=== PATIENT | male | born 1960 | race Caucasian/White ===

== ENCOUNTER → 2017-01-18 | Outpatient (CLI) | payer BC ==
[~2017-01-18] MED LIST: AMLO-114 PO; CLB200 PO; GLC/500 PO; HYDR-5688 PO; HYDR25TA4 PO; METO1TAB69 PO; OXYSR10 PO; POTA10CA28 PO; SERT-234 PO; TELM40TA11 PO
[2017-01-18 19:01] LABS: ALB/GLOB RATIO 0.7 (0.9-2); ALKALINE PHOSPHATASE 96 U/L (45-117); ALT/SGPT 26 U/L (12-78); AST/SGOT 22 U/L (15-37); BLOOD UREA NITROGEN 11 mg/dl (7-18); BUN/CREATININE RATIO 13.1 (10-20); CALCIUM 8.7 mg/dl (8.5-10.1); CARBON DIOXIDE 30 mmol/L (21-32); CHLORIDE 99 mmol/L (98-107); CREATININE 0.85 mg/dl (0.60-1.40); GLUCOSE 118 mg/dl (70-99); POTASSIUM 3.1 mmol/L (3.5-5.1); SODIUM 139 mmol/L (136-145)
[2017-01-18 19:46] LABS: RATIO 6.9 mcg/mg (0-30.0)
[2017-01-19 05:56] LABS: ESTIMATED AVERAGE GLUCOSE 160 mg/dl; HA1C FLAG Normal (Normal)
== END | disposition home or self-care (01) ==
LOC: C.LABMFLN 09:18
PROVIDERS: ATTEND Family Medicine
DX: I10 Essential (primary) hypertension (principal); E66.01 Morbid (severe) obesity due to excess calories; E11.9 Type 2 diabetes mellitus without complications

== ENCOUNTER → 2017-03-10 | Outpatient (CLI) | payer BC ==
[~2017-03-10] MED LIST changes: +ACET-24 PO; +METO100T44 PO; -METO1TAB69 PO; +ONDA8TAB6 PO; +RXC5 PO; +XRL10 PO
[2017-03-10 13:16] LABS: BLOOD UREA NITROGEN 8 mg/dl (7-18); BUN/CREATININE RATIO 10.5 (10-20); CALCIUM 8.7 mg/dl (8.5-10.1); CARBON DIOXIDE 32 mmol/L (21-32); CHLORIDE 105 mmol/L (98-107); CREATININE 0.76 mg/dl (0.60-1.40); GLUCOSE 119 mg/dl (70-99); SODIUM 141 mmol/L (136-145)
== END | disposition home or self-care (01) ==
LOC: C.LABMFLN 11:25
PROVIDERS: ATTEND Physician Assistant
DX: E87.6 Hypokalemia (principal)

== ENCOUNTER 2017-08-30 05:13 | Inpatient (IN) | payer BC ==
[2017-07-28 14:31] VITALS: BMI 50.0
--- NOTE | 2017-07-28 15:00 | PAT Medication Instructions ---
Service Date Jul 28, 2017. Current Home Medication List Amlodipine (Norvasc), 10 MG PO QAM Hydrochlorothiazide (Hctz), 25 MG PO QAM Metformin Hcl (Glucophage), 500 MG PO QAM Metoprolol Succ (Toprol Xl) (Toprol-Xl ), 100 MG PO QAM Potassium Chloride (Micro-K Ext Rel), 10 MEQ PO QAM Sertraline (Zoloft), 100 MG PO QAM Telmisartan (Micardis), 40 MG PO QAM Medication Instructions For Your Scheduled Surgery - Hold the following medications 48 hours prior to surgery: Metformin Hcl (Glucophage), 500 MG PO QAM - Hold the following medications the morning of surgery: Telmisartan (Micardis), 40 MG PO QAM Potassium Chloride (Micro-K Ext Rel), 10 MEQ PO QAM Hydrochlorothiazide (Hctz), 25 MG PO QAM - Take the following medications the morning of surgery with a sip of water OTHERWISE NOTHING TO EAT OR DRINK AFTER MIDNIGHT: Sertraline (Zoloft), 100 MG PO QAM Amlodipine (Norvasc), 10 MG PO QAM Metoprolol Succ (Toprol Xl) (Toprol-Xl ), 100 MG PO QAM No chewing tobacco AM of surgery* If you have any questions please call us at [phone] or [phone] or [phone]
--- NOTE | 2017-07-28 15:41 | DIAGNOSTIC IMAGING REPORT ---
CHEST PREADMISSION(PA/LAT) HISTORY: 57 years-old Male preadmission exam. No acute chest complaints COMPARISON: Chest radiographs 05/01/2015 TECHNIQUE: Frontal and lateral views of the chest FINDINGS: Moderate enlargement of the cardiac silhouette is again seen. There is no pneumothorax or large pleural effusion. There is unchanged mild blunting of the right costophrenic angle with medial right lung base opacity suggesting atelectasis or prominent epicardial fat pad. No lobar airspace consolidation. There is mild convex left curvature of the lower thoracic spine. Bones are grossly intact. IMPRESSION: Cardiomegaly without acute process or focal airspace consolidation. The above report was generated using voice recognition software. It may contain grammatical, syntax or spelling errors. Electronically signed by: Edmund Medina M.D. 07/28/2017 3:40 PM Dictated Date/Time: 07/28/2017 3:38 PM
[2017-07-28 15:53] LABS: BASO % 0.6 %; BASO ABS # 0.04 K/uL (0-0.2); COMPLETE YES; EOS % 2.9 %; HEMATOCRIT 43.7 % (42-52); IG% 0.4 %; LYMPH % 27.6 %; LYMPH ABS # 1.97 K/uL (1.2-3.4); MEAN CELL VOLUME 89.9 fL (80-100); MEAN CORPUSCULAR HEMOGLOBIN 32.1 pg (25-34); MEAN CORPUSCULAR HGB CONC 35.7 g/dl (32-36); MEAN PLATELET VOLUME 9.6 fL (7.4-10.4); MONO % 11.3 %; NEUT % 57.2 %; PLATELET COUNT 224 K/uL (130-400); RED BLOOD COUNT 4.86 M/uL (4.7-6.1); URINE APPEARANCE CLEAR (CLEAR); URINE BILIRUBIN NEG (NEG); URINE COLOR DK YELLOW; URINE NITRITE NEG (NEG); URINE PH 6.5 (4.5-7.5); URINE SPECIFIC GRAVITY 1.022 (1.000-1.030); UROBILINOGEN NEG (NEG); WHITE BLOOD COUNT 7.14 K/uL (4.8-10.8); ZZUR CULT IF INDIC CLEAN CATCH NO
[2017-07-28 15:54] LABS: MANUAL MICROSCOPIC REQUIRED? NO; REVIEW REQ? NO
[2017-07-28 16:01] LABS: INR 1.1 (0.9-1.1); PARTIAL THROMBOPLASTIN RATIO 1.1
[2017-07-28 16:02] LABS: BUN/CREATININE RATIO 12.9 (10-20); CALCIUM 8.9 mg/dl (8.5-10.1); CREATININE 0.87 mg/dl (0.60-1.40); POTASSIUM 3.7 mmol/L (3.5-5.1)
[2017-07-29 06:21] LABS: ESTIMATED AVERAGE GLUCOSE 157 mg/dl; HA1C FLAG Normal (Normal)
--- NOTE | 2017-08-29 17:25 | HISTORY & PHYSICAL EXAMINATION ---
DATE OF ADMISSION: 08/30/2017 CHIEF COMPLAINT: Chronic left knee pain. HISTORY OF PRESENT ILLNESS: This is a 57-year-old male patient of Dr. Rdz, complaining of chronic left knee pain, longstanding, now progressively getting worse. The patient has been diagnosed with end-stage osteoarthritis per clinical and radiographic exams. The patient has failed conservative treatment including Tylenol and anti-inflammatories. The patient has increased pain with weightbearing activities and his pain does interfere with his activities of daily living. PAST MEDICAL HISTORY: Hypertension. SOCIAL HISTORY: Nonsmoker and nondrinker. FAMILY HISTORY: Noncontributory. PAST SURGICAL HISTORY: Hernia repair and knee surgery. MEDICATIONS: Amlodipine 10 mg daily, metoprolol 100 mg daily, sertraline 100 mg daily, metformin 500 mg b.i.d., hydrochlorothiazide 25 mg daily, telmisartan 40 mg b.i.d., and potassium chloride 10 mg b.i.d. ALLERGIES: No known drug allergies. PHYSICAL EXAMINATION: GENERAL: Well-developed and well-nourished 57-year-old male in no acute distress. He is alert and oriented x3 and pleasant. HEENT: Normocephalic and atraumatic. Extraocular movements are intact. Pupils are equal and reactive to light. HEART: Regular rate and rhythm. No murmurs appreciated. LUNGS: Clear. ABDOMEN: Soft and nontender. Bowel sounds present. EXTREMITIES: Left knee reveals a limited range of motion of 0-95 degrees of ____. He has mild effusion with crepitation with passive range of motion. He has medial joint line tenderness. NEUROLOGIC: Neurovascularly, he is intact in his left lower extremity. DIAGNOSES: Left knee end-stage osteoarthritis and hypertension. PLAN: The patient was advised of his diagnoses. Indications, risks, benefits, and postop course have all been reviewed. The patient wishes to proceed with a left total knee arthroplasty. Necessary consent forms, preoperative testing and clearances will be obtained.
[~2017-08-30] VITALS: Ht 182.9 cm; Wt 166.0 kg
[2017-08-30] VITALS (9 sets, daily range): BP systolic 98–149; BP diastolic 65–91; PULSE 55–71; TEMP 36.3–36.5; O2SAT 90–98; Ht 182.9 cm; Wt 166.0 kg
[~2017-08-30 05:13] MED LIST changes: -ACET-24 PO; -CLB200 PO; -HYDR-5688 PO; -METO100T44 PO; +METO1TAB69 PO; -ONDA8TAB6 PO; -OXYSR10 PO; -RXC5 PO; -XRL10 PO
[2017-08-30] MEDS ORDERED: FAMOTIDINE 20 MG TAB PO SCH (06:00)
[2017-08-30] MEDS ORDERED: LACTATED RINGER'S 1000ML 500 ML IV ONE (06:00)
[2017-08-30] MEDS ORDERED: METOCLOPRAMIDE HCL 10 MG TAB PO SCH (06:00)
[2017-08-30] MEDS ORDERED: CEFAZOLIN 3000 MG/65 ML D5W 65 ML IV SCH (06:00)
[2017-08-30] MEDS ORDERED: ROPIVACAINE 5MG/ML 30 ML 150 MG, BUPIVACAINE/EPINEPHR 0.5% MPF 30 ML, KETOROLAC TROMETH... INFIL SCH ×6 (06:00)
[2017-08-30] MEDS ORDERED: GABAPENTIN 300 MG CAP PO SCH (06:00)
[2017-08-30] MEDS ORDERED: LACTATED RINGER'S 1000ML IV SCH (06:00)
[2017-08-30] MEDS ORDERED: LACTATED RINGER'S 1000ML 1,000 ML IV SCH (06:00)
[2017-08-30] MEDS ORDERED: ACETAMINOPHEN 500 MG TAB PO SCH (06:00)
[2017-08-30] MEDS ORDERED: CeleBREX 200 MG CAP PO SCH (06:00)
[2017-08-30] MEDS ORDERED: BUPIVACAINE 0.25% 30 ML VIAL ONE (06:21)
[2017-08-30] MEDS ORDERED: BUPIVACAINE 0.5 % 5 MG/1 ML PF 10ML VIAL ONE (06:21)
[2017-08-30] MEDS: TRANEXAMIC ACID INJ 1,000 MG in SODIUM CHLORIDE 0.9% 100ML 100 ML IV SCH ×2 (06:30→06:34)
[2017-08-30] MEDS ORDERED: POVIDONE-IODINE OP SOLN 30 ML BTL ONE (07:04)
[2017-08-30] MEDS ORDERED: ORTHO JOINT ANESTHETIC ONE (07:04)
[2017-08-30] MEDS ORDERED: BACITRACIN 50000 UNIT VIAL ONE (07:05)
[2017-08-30] MEDS ORDERED: MIDAZOLAM HCL 1 MG/ML 2ML VIAL ONE ×2 (07:11→07:17)
[2017-08-30] MEDS ORDERED: ONDANSETRON INJ 2 MG/ML 2 ML VIAL IV PRN ×2 (07:15→09:45)
[2017-08-30] MEDS ORDERED: EpHEDrine SULFATE INJ 50 MG/ML AMP IV PRN (07:15)
[2017-08-30] MEDS ORDERED: FENTANYL CITRATE INJ 50 MCG/1 ML 2 ML VIAL IV PRN (07:15)
[2017-08-30] MEDS ORDERED: ATROPINE SULFATE 0.1 MG/ML 5ML SYR IV PRN (07:15)
--- NOTE | 2017-08-30 07:26 | History & Physical Bridge Note ---
H&P Re-Evaluation Bridge Note: I have examined the patient, reviewed the History & Physical and in the interval since the performance of the History & Physical I have noted the following changes of clinical significance: No changes noted
[2017-08-30] MEDS ORDERED: BISACODYL 10 MG SUPP PR PRN (09:45)
[2017-08-30] MEDS ORDERED: MAGNESIUM HYDROXIDE SUSP 30 ML UDC PO PRN (09:45)
[2017-08-30] MEDS ORDERED: ZOLPIDEM TARTRATE 5 MG TAB PO PRN (09:45)
[2017-08-30] MEDS ORDERED: ALUMINUM/MAGNESIUM/SIMETH (MAALOX MAX) 30 ML UDC PO PRN (09:45)
[2017-08-30] MEDS ORDERED: SOD PHOSPHATE/SOD BIPHOSPHATE ENEMA 132 ML BTL PR PRN (09:45)
--- NOTE | 2017-08-30 09:51 | [facility] Post Operative Brief Note ---
Immediate Operative Summary Operative Date Aug 30, 2017. Pre-Operative Diagnosis Left Knee Degenerative Joint Disease Post-Operative Diagnosis Left Knee Degenerative Joint Disease Procedure(s) Performed Left Total Knee Arthroplasty Surgeon Dr. Preet Rdz Prepress Manager Surgeon(s) Pablito Davis PA-C Estimated Blood Loss 5ml Findings end stage djd oa grade 4 patellofemoral and medial compartment varus knee Specimens Permanent: A. Left Knee Bone and Tissue Drains 2 hemovac Anesthesia spinal adductor bvlock and orthomix Complication(s) None Disposition Recovery Room / PACU
--- NOTE | 2017-08-30 10:24 | DIAGNOSTIC IMAGING REPORT ---
LEFT KNEE 2 VIEWS History: Left total knee arthroplasty. Degenerative arthritis. Postop. FINDINGS: The patient is status post a left total knee arthroplasty. The hardware is intact. No fracture or dislocation. Skin elle and surgical drains are in place. IMPRESSION: Left total knee arthroplasty. No evidence for hardware complication. Electronically signed by: Laz Ansari M.D. 08/30/2017 10:22 AM Dictated Date/Time: 08/30/2017 10:22 AM
--- NOTE | 2017-08-30 10:24 | OPERATIVE REPORT ---
DATE OF OPERATION: 08/30/2017 INDICATION FOR PROCEDURE: The patient is a 57-year-old male who presents with chronic left knee pain and osteoarthritis in her knee, failed conservative management. He is obese with BMI of 49.8. His radiographs demonstrate he is [id number] in the medial compartment with a varus knee and has patellofemoral osteoarthritis. PREOPERATIVE DIAGNOSIS: End-stage osteoarthritis, left knee. POSTOPERATIVE DIAGNOSIS: Same. PROCEDURE: Left total knee arthroplasty. SURGEON: Dr. Rdz. PET COUNSELOR: Pablito Davis PA-C. ANESTHESIA: Spinal adductor nerve block and Orthomix. OPERATIVE PROCEDURE: The patient was taken to the operating room, anesthetized under spinal anesthetic and an adductor nerve block. Placed supine on the operating room table. Pneumatic tourniquet was placed about his obese upper thigh. His left lower extremity was prepped and draped with ChloraPrep usual sterile fashion. Exam demonstrated he had good range of motion, had obese leg, but mostly up in his thigh. It was just a large man and a good part of his BMI was due to just being very large. His left leg was elevated, exsanguinated with Esmarch bandage. Pneumatic tourniquet was raised to 350 mmHg because of his obesity. Anterior incision was made across the left knee. Skin incised sharply. Subcutaneous flaps were elevated. Incision was made through medial retinaculum and extended up in the mid third of the quadriceps tendon and extended down to the medial tibial tubercle. Intraarticular findings demonstrated he had [id number] in the medial compartment with some minor bone loss medial femoral condyle. He had [id number] in the patellofemoral joint laterally. He was a large individual with large bones. He had tricompartmental osteophytes. I used the [employer] Journey 2.0, total knee arthroplasty system and we used conventional instrumentation. The knee was exposed by excising the infrapatellar fat pad, excising the menisci and cruciate ligaments. The osteophytes were excised and we did do a partial synovectomy of suprapatellar pouch extending into some of the upper gutters due to marked inflammatory synovitis. The lateral synovial bands were released. The femur was exposed. Intramedullary drill hole was made into the femur. The guide sam was placed. Distal femoral cutting guide was adjusted to make a 5 degree valgus cut. We made the standard distal femoral cut with the oscillating saw. Then measured the femur for a size 8 femoral component. Drill holes were made in 3 degrees of external rotation to match the epicondylar axis. The 5-1 cutting block was placed, anterior, posterior and chamfer cuts made. Then the knee was extended. A subperiosteal peel lateral release was performed around the patella. The patella width was measured and width was reproduced using a freehand cut technique and a 41 mm dome patella component. The excess lateral facet was beveled off to prevent any impingement. Drill holes were made for the component. The tibia was then subluxed and the external tibial cutting guide was adjusted to make a perpendicular cuts long axis of the tibia cutting below the most efficient medial side. After the tibial cut was made we used the lamina sql bi developer to adjust ligamentous balance in extension and flexion and the ligaments were balanced. At this time, the tibia was exposed and the tibial trial size 7 was externally rotated in line with the tibial tubercle, pinned in position. The punch for the stem was used. Then the 8 femoral trial was inserted, centered and the notch cutting devices were used, the collet was placed and a 13 trial insert gave balanced ligaments through full range of motion and the 41 patella tracked centrally. The trials were removed. The anesthetic cocktail was injected per protocol and then the knee was copiously irrigated with antibiotic solution with bacitracin. Bone surfaces were dried. Then, the final components were cemented with Simplex G cement. Final components were a 6 Oxinium posterior stabilized left [employer]hew Journey 2.0 femur, the 7 tibial baseplate, 13 mm high flex posterior stabilized poly insert and the 41 patella. While cement cured, the Betadine soak was used. Then after irrigating this out again 2 drains were brought out laterally and then the quadriceps tendon and medial retinaculum were closed with interrupted [id number] #1 Vicryl sutures. The knee was taken through full range of motion and repair was secure. Then the subcutaneous tissue closed with 2-0 Vicryl sutures, skin was closed with elle. Silverlon dressing was placed. The patient tolerated the procedure well. SRAVANTHI Alfaro was my assistant baseball coach and functioned as assistant baseball coach for the entire procedure. He assisted in patient positioning, prepping, draping, leg positioning, soft tissue retraction, instrument management during the procedure and he did assist in the subcutaneous and skin closure and will participate in postoperative care of the patient. I attest to the content of the Intraoperative Record and any orders documented therein. Any exception s are noted below.
--- NOTE | 2017-08-30 10:25 | Anesthesiology Progress Note ---
Anesthesia Post Op Note Date & Time Aug 30, 2017 at 10:25 Vital Signs Pain Intensity: 0 Vital Signs Past 12 Hours Date Time Temp Pulse Resp B/P (MAP) Pulse Ox O2 Delivery O2 Flow Rate FiO2 08/30/17 10:20 36.8 62 14 110/77 99 Oxymask 3 08/30/17 10:10 66 14 123/73 99 Oxymask 3 08/30/17 10:00 62 14 126/76 99 Mask 10 08/30/17 09:53 66 14 129/89 99 Mask 10 08/30/17 09:43 37.2 62 18 136/83 100 Mask 10 08/30/17 05:46 36.5 71 18 142/91 95 Room Air Notes Mental Status: alert / awake / arousable, participated in evaluation Pt Amnestic to Procedure: Yes Nausea / Vomiting: adequately controlled Pain: adequately controlled Airway Patency, RR, SpO2: stable & adequate BP & HR: stable & adequate Hydration State: stable & adequate Neuraxial Anesthesia: was administered, sensory block is resolving Anesthetic Complications: no major complications apparent
[2017-08-30] MEDS: SODIUM CHLORIDE 0.9% 1000ML 1,000 ML IV SCH ×2 (11:04→19:43)
[2017-08-30] MEDS: INSULIN ASPART 100 UNITS/ML 3 ML PEN SC SCH ×3 (13:09→21:50)
[2017-08-30] MEDS ORDERED: HydrALAZINE HCL 20 MG/ML VIAL IV. PRN (13:45)
[2017-08-30] MEDS ORDERED: GLUCOSE 10 TABS/TUBE PO PRN (13:45)
[2017-08-30] MEDS ORDERED: GLUCAGON FOR INJ 1 MG VIAL SQ PRN (13:45)
[2017-08-30] MEDS ORDERED: DEXTROSE 50% 50 ML SYR IV PRN (13:45)
[2017-08-30] MEDS ORDERED: GLUCOSE 40% GEL 15 GM TUBE PO PRN (13:45)
--- NOTE | 2017-08-30 13:47 | Medical Consult ---
Consultation Date of Consultation: Aug 30, 2017. Attending Physician: Preet Rdz M.D. Reason for Consultation: Medical management History of Present Illness This is a 57 y/o male with a history of HTN, HLD, DM II, and anxiety who presents s/p L TKA with Dr. Rdz on 08/30 for medical management. The patient complains of fatigue and some soreness in his left knee but is otherwise feeling well. He is tolerating a PO diet without difficulty. He has not yet urinated, passed gas or had a bowel movement postoperatively. The patient denies fevers, chills, sweats, chest pain, palpitations, claudication, cough, wheezing, shortness of breath, nausea, vomiting, abdominal pain, dysuria , hematuria, urinary retention, paralysis, weakness, numbness and tingling. Past Medical/Surgical History HTN HLD DM II Anxiety Family History Hypertension Lung cancer Social History Smoking Status: Never Smoker Smokeless Tobacco Use: Yes Alcohol Use: socially Drug Use: none Marital Status: Housing Status: lives with significant other Occupation Status: employed Allergies Coded Allergies: Morphine (Verified Allergy, Unknown, G I YURI, 08/30/17) Current Inpatient Medications Current Inpatient Medications Medications (Trade) Dose Ordered Sig/Jayro Route Start Time Stop Time Status Last Admin Dose Admin Lactated Ringer's 1,000 ml @ 60 mls/hr [id number] IV 08/30/17 06:00 08/30/17 22:39 08/30/17 06:02 60 MLS/HR Cefazolin Sodium 65 ml @ 100 mls/hr PREOP IV 08/30/17 06:00 08/30/17 18:00 08/30/17 07:35 100 MLS/HR Acetaminophen (Tylenol Tab) 1,000 mg PREOP PO 08/30/17 06:00 08/30/17 18:00 08/30/17 06:18 1,000 MG Celecoxib (CeleBREX CAP) 200 mg PREOP PO 08/30/17 06:00 08/30/17 18:00 08/30/17 06:19 200 MG Famotidine (Pepcid Tab) 20 mg PREOP PO 08/30/17 06:00 08/30/17 18:00 08/30/17 06:19 20 MG Gabapentin (Neurontin Cap) 600 mg PREOP PO 08/30/17 06:00 08/30/17 18:00 08/30/17 06:18 600 MG Metoclopramide HCl (Reglan Tab) 10 mg PREOP PO 08/30/17 06:00 08/30/17 18:00 08/30/17 06:17 10 MG Tranexamic Acid 1000 mg/Sodium Chloride 110 ml @ 660 mls/hr TODAY@06,0630 IV 08/30/17 06:00 08/30/17 18:00 08/30/17 06:30 660 MLS/HR Lactated Ringer's 1,000 ml @ 15 mls/hr Q24H IV 08/30/17 06:00 08/31/17 05:59 Amlodipine Besylate (Norvasc Tab) 10 mg QAM PO 08/31/17 09:00 09/30/17 08:59 Hydrochlorothiazide (Hydrochlorothiazide Tab) 25 mg QAM PO 08/31/17 09:00 09/30/17 08:59 Metoprolol Succinate (Toprol Xl Tab) 100 mg QAM PO 08/31/17 09:00 09/30/17 08:59 Potassium Chloride (Klor-Con M10) 10 meq QAM PO 08/31/17 09:00 09/30/17 08:59 Sertraline HCl (Zoloft Tab) 100 mg QAM PO 08/31/17 09:00 09/30/17 08:59 Telmisartan (Micardis Tab) 40 mg QAM PO 08/31/17 09:00 09/30/17 08:59 Sodium Chloride 1,000 ml @ 100 mls/hr Q10H IV 08/30/17 09:40 08/31/17 09:39 08/30/17 11:04 100 MLS/HR Cefazolin Sodium 2000 mg/Dextrose 60 ml @ 100 mls/hr Q8H IV 08/30/17 16:00 08/31/17 00:35 Oxycodone HCl (Roxicodone Immediate Rel Tab) 1 TABLET FOR PAIN RATING... Q4H PRN PO 08/30/17 09:45 09/13/17 09:44 Oxycodone HCl (Oxycontin Tab) 10 mg Q12 PO 08/30/17 21:00 09/13/17 20:59 Acetaminophen (Tylenol Tab) 1,000 mg Q8H PO 08/30/17 14:00 09/29/17 13:59 Magnesium Hydroxide (Milk Of Magnesia Susp) 30 ml Q6H PRN PO 08/30/17 09:45 09/29/17 09:44 Bisacodyl (Dulcolax Supp) 10 mg DAILY PRN W[place] 08/30/17 09:45 09/29/17 09:44 Sodium Biphosphate/ Sodium Phosphate (Fleet Enema) 132 ml DAILY PRN W[place] 08/30/17 09:45 09/29/17 09:44 Docusate Sodium (coLACE CAP) 100 mg BID PO 08/30/17 21:00 09/29/17 20:59 Diphenhydramine HCl (Benadryl Cap) 25 mg Q8H PRN PO 08/30/17 09:45 09/29/17 09:44 Al Hydrox/Mg Hydrox/Simethicone (Maalox Max Susp) 15 ml Q4H PRN PO 08/30/17 09:45 09/29/17 09:44 Zolpidem Tartrate (Ambien Tab) 5 mg HSZ PRN PO 08/30/17 09:45 09/29/17 09:44 Multivitamins (Multivitamin Tab) 1 tab QAM PO 08/31/17 09:00 09/30/17 08:59 Ondansetron HCl (Zofran Inj) 4 mg Q6H PRN IV 08/30/17 09:45 09/29/17 09:44 Pantoprazole Sodium (Protonix Tab) 40 mg QAM PO 08/31/17 09:00 09/30/17 08:59 Rivaroxaban (Xarelto Tab) 10 mg Q24H PO 08/31/17 09:00 09/12/17 08:59 Hydromorphone HCl (Dilaudid Inj) 0.5 mg Q3H PRN IV 08/30/17 09:45 09/13/17 09:44 Insulin Aspart (novoLOG ASPART) SLIDING SCALE G... ACHS SC 08/30/17 11:00 09/29/17 10:59 08/30/17 13:09 2 UNITS Review of Systems See HPI for pertinent positives and negatives. All other systems reviewed and negative. Physical Exam Date Time Temp Pulse Resp B/P (MAP) Pulse Ox O2 Delivery O2 Flow Rate FiO2 08/30/17 13:40 58 16 98/65 (76) 96 Nasal Cannula 2.0 08/30/17 12:25 36.3 60 19 117/69 (85) 94 Nasal Cannula 2.0 08/30/17 11:28 36.3 60 16 127/73 (91) 98 Mask 2.0 08/30/17 10:54 36.4 60 16 132/78 (96) 96 Mask 2.0 08/30/17 10:33 92 Oxymask 2.0 08/30/17 10:33 36.4 62 16 131/81 (98) 92 Oxymask 2.0 08/30/17 10:20 36.8 62 14 110/77 99 Oxymask 3 08/30/17 10:10 66 14 123/73 99 Oxymask 3 08/30/17 10:00 62 14 126/76 99 Mask 10 08/30/17 09:53 66 14 129/89 99 Mask 10 08/30/17 09:43 37.2 62 18 136/83 100 Mask 10 08/30/17 05:46 36.5 71 18 142/91 95 Room Air General appearance: +Morbidly obese. Lethargic. Well-developed, well- nourished, no apparent distress Head: Normocephalic, atraumatic Eyes: Normal inspection, PERRL, EOMI ENT: Normal ENT inspection, hearing grossly normal, pharynx normal Neck: Supple, no JVD, trachea midline Respiratory/Chest: Lungs clear to auscultation, normal breath sounds, no respiratory distress Cardiovascular: Regular rate & rhythm, no gallop, no murmur Abdomen/GI: Normal bowel sounds, non-tender, soft Extremities/Musculoskeletal: +LLE wrapped in viviana bandage. Normal inspection, no calf tenderness, no pedal edema Neurological/Psych: Alert, normal mood/affect, oriented x 3 Skin: Normal color, warm/dry, no rash Laboratory Results Last 24 Hours Test 08/30/17 06:17 08/30/17 09:57 08/30/17 11:46 Bedside Glucose 114 mg/dl 117 mg/dl 117 mg/dl Assessment & Plan 57 y/o male with a history of HTN, HLD, DM II, and anxiety who presents s/p L TKA with Dr. Rdz on 08/30 for medical management. S/p L TKA -Pain management, DVT prophylaxis, and PT/OT as per primary team -AVSS, lethargic following anesthesia but answering questions appropriately -CBC and PRP pending HTN--stable -Hold HCTZ and telmisartan for now while on IVF and until renal function checked /stable -Continue Norvasc 10 mg PO qd and Toprol XL 100 mg PO qd -Cover with hydralazine 10 mg IV q6h prn SBP >180 DM II--last HgbA1c checked 07/28/17 was 7.1 -Hold metformin -Insulin sliding scale -Check BSGs q ac and qhs Anxiety -Continue Zoloft 100 mg PO qd Code Status -Level I, FULL RESUSCITATION STATUS Thank you for this consultation. We will continue to follow. Resident Physician Supervision Note: Pt seen/evaluated. I discussed the case with the PA and agree with the findings and plan as documented in the note. Any exceptions or clarifications are listed here: 57 y/o M with a history of HTN, HPL, DM II - post L TKA. Recovering well post- op - denies N/V, SOB or lighthead - pain is controlled OE Obese, middle-aged male - no distress AAO x 3 S1,2 R CTAB NT, ND no edema - pulses + in LEs P: Place on SS Resume HTN meds AM following BMP Does not normally take a Statin - presumably does not tolerate but should be addressed with his MD as outpt Med will follow pending DC Documented By: Daniel Paul
[2017-08-30 14:13] LABS: HEMATOCRIT 40.2 % (42-52); MEAN CELL VOLUME 90.7 fL (80-100); MEAN CORPUSCULAR HEMOGLOBIN 31.4 pg (25-34); MEAN CORPUSCULAR HGB CONC 34.6 g/dl (32-36); MEAN PLATELET VOLUME 9.4 fL (7.4-10.4); PLATELET COUNT 193 K/uL (130-400); RED BLOOD COUNT 4.43 M/uL (4.7-6.1)
[2017-08-30] MEDS: ACETAMINOPHEN 500 MG TAB PO SCH ×2 (14:13→22:26)
[2017-08-30 14:39] LABS: BUN/CREATININE RATIO 14.3 (10-20); CALCIUM 8.5 mg/dl (8.5-10.1); CREATININE 0.84 mg/dl (0.60-1.40); POTASSIUM 3.8 mmol/L (3.5-5.1)
[2017-08-30] MEDS: CEFAZOLIN IV 2,000 MG in DEXTROSE 5% 50ML 50 ML IV SCH ×2 (16:28→23:25)
[2017-08-30] MEDS: OXYCODONE HCL 10 MG TABCR (OXYCONTIN) PO SCH (20:31)
[2017-08-30] MEDS: DOCUSATE SODIUM 100 MG CAP PO SCH (20:31)
[2017-08-30] MEDS: OXYCODONE HCL IR 5 MG TAB (IMMEDIATE RELEASE) PO PRN (23:25)
[2017-08-31] VITALS (7 sets, daily range): BP systolic 96–180; BP diastolic 60–106; PULSE 65–100; TEMP 36.5–37; O2SAT 91–93
[2017-08-31] MEDS: HYDROmorphone INJ 0.5 MG/0.5 ML SYR IV PRN ×3 (02:19→19:59)
[2017-08-31] MEDS: SODIUM CHLORIDE 0.9% 1000ML 1,000 ML IV SCH (05:43)
[2017-08-31] MEDS: ACETAMINOPHEN 500 MG TAB PO SCH ×3 (05:44→21:11)
[2017-08-31] MEDS: OXYCODONE HCL IR 5 MG TAB (IMMEDIATE RELEASE) PO PRN ×4 (05:59→23:32)
[2017-08-31 06:47] LABS: HEMATOCRIT 38.6 % (42-52); MEAN CORPUSCULAR HEMOGLOBIN 31.8 pg (25-34); MEAN PLATELET VOLUME 9.7 fL (7.4-10.4); PLATELET COUNT 204 K/uL (130-400); RED BLOOD COUNT 4.24 M/uL (4.7-6.1); WHITE BLOOD COUNT 9.07 K/uL (4.8-10.8)
[2017-08-31 07:28] LABS: BLOOD UREA NITROGEN 15 mg/dl (7-18); BUN/CREATININE RATIO 17.8 (10-20); CALCIUM 7.7 mg/dl (8.5-10.1); CARBON DIOXIDE 30 mmol/L (21-32); CHLORIDE 105 mmol/L (98-107); CREATININE 0.82 mg/dl (0.60-1.40); GLUCOSE 107 mg/dl (70-99); SODIUM 140 mmol/L (136-145)
--- NOTE | 2017-08-31 08:27 | Orthopedic Progress Note ---
Orthopedic Progress Note Date of Service Aug 31, 2017. Subjective Post OP Day: 1 Reports: feeling well, pain controlled w PO medications, Denies: complaints, chest pain, SOB, nausea / vomiting, light headedness, calf pain Objective calves soft nontender, N/V intact, capillary refill less than 2 sec., dressing C /D/I, A&O x3, toes mobile Date Time Temp Pulse Resp B/P (MAP) Pulse Ox O2 Delivery O2 Flow Rate FiO2 08/31/17 07:41 36.5 65 16 135/72 (93) 93 Room Air 08/31/17 03:00 36.6 67 16 131/80 (97) 93 Nasal Cannula 2.0 08/30/17 23:52 36.5 69 16 149/84 (105) 90 Room Air 08/30/17 23:15 Room Air 08/30/17 20:00 36.4 58 20 118/74 (89) 96 Room Air 08/30/17 15:30 Room Air 08/30/17 15:05 36.4 55 16 116/74 (88) 97 2.0 08/30/17 13:40 58 16 98/65 (76) 96 Nasal Cannula 2.0 08/30/17 12:25 36.3 60 19 117/69 (85) 94 Nasal Cannula 2.0 08/30/17 11:28 36.3 60 16 127/73 (91) 98 Mask 2.0 08/30/17 10:54 36.4 60 16 132/78 (96) 96 Mask 2.0 08/30/17 10:33 92 Oxymask 2.0 08/30/17 10:33 36.4 62 16 131/81 (98) 92 Oxymask 2.0 08/30/17 10:33 Oxymask 2.0 08/30/17 10:20 36.8 62 14 110/77 99 Oxymask 3 08/30/17 10:10 66 14 123/73 99 Oxymask 3 08/30/17 10:00 62 14 126/76 99 Mask 10 08/30/17 09:53 66 14 129/89 99 Mask 10 08/30/17 09:43 37.2 62 18 136/83 100 Mask 10 Laboratory Results 24 Hours: Test 08/30/17 13:55 08/31/17 06:17 Hematocrit 40.2 % 38.6 % Hemoglobin 13.9 g/dL 13.5 g/dL Assessment & Plan Assessment: POD #1, Left TKA Plan: PT/ OT DVT proph- Xarelto D/C planning- Home w OPPT As per medicine Inhouse Planning Pain Management: Oxycontin, Ultram, Dilaudid, PO Tylenol, Oxy IR DVT Prophylaxis: TEDs, SCDs, Xarelto Discharge Planning Discharge Planning: home with oppt Pain Management: Oxycontin, PO Tylenol, Oxy IR DVT Prophylaxis: TEDs, Xarelto Therapy: Physical Therapy, Occupational Therapy
[2017-08-31] MEDS ORDERED: HYDROCHLOROTHIAZIDE 25 MG TAB PO SCH (09:00)
[2017-08-31] MEDS: METOPROLOL SUCC 50MG EXT REL TAB PO SCH (09:00)
[2017-08-31] MEDS ORDERED: TELMISARTAN 40 MG TAB PO SCH (09:00)
[2017-08-31] MEDS: POTASSIUM CHLORIDE 10 MEQ TABCR PO SCH (09:38)
[2017-08-31] MEDS: INSULIN ASPART 100 UNITS/ML 3 ML PEN SC SCH ×4 (09:38→21:12)
[2017-08-31] MEDS: RIVAROXABAN 10 MG TAB PO SCH (09:38)
[2017-08-31] MEDS: SERTRALINE HCL 100 MG TAB PO SCH (09:39)
[2017-08-31] MEDS: PANTOprazole SOD 40 MG TAB PO SCH (09:39)
[2017-08-31] MEDS: DOCUSATE SODIUM 100 MG CAP PO SCH ×2 (09:39→21:11)
[2017-08-31] MEDS: MULTIVITAMIN TAB PO SCH (09:39)
[2017-08-31] MEDS: OXYCODONE HCL 10 MG TABCR (OXYCONTIN) PO SCH ×2 (09:50→21:11)
--- NOTE | 2017-08-31 09:56 | Progress Note ---
Subjective Date of Service: Aug 31, 2017. Subjective Pt evaluation today including: conversation w/ patient, physical exam, lab review, review of inpatient medication list Pain: left knee pain, moderate PO Intake: adequate Voiding: no voiding problems patient feeling well, no CP or SOB eating well, drinking well tolerating left knee pain complains about Novolog injections, explained that only getting them here in hospital labs reviewed, Cr stable, Hb stable Review of Systems Musculoskeletal: + joint pain (left knee) All Other Systems: Reviewed and Negative Medications Current Inpatient Medications Medications (Trade) Dose Ordered Sig/Jayro Route Start Time Stop Time Status Last Admin Dose Admin Amlodipine Besylate (Norvasc Tab) 10 mg QAM PO 08/31/17 09:00 09/30/17 08:59 Hydrochlorothiazide (Hydrochlorothiazide Tab) 25 mg QAM PO 08/31/17 09:00 09/30/17 08:59 Future Hold Metoprolol Succinate (Toprol Xl Tab) 100 mg QAM PO 08/31/17 09:00 09/30/17 08:59 Potassium Chloride (Klor-Con M10) 10 meq QAM PO 08/31/17 09:00 09/30/17 08:59 08/31/17 09:38 10 MEQ Sertraline HCl (Zoloft Tab) 100 mg QAM PO 08/31/17 09:00 09/30/17 08:59 08/31/17 09:39 100 MG Telmisartan (Micardis Tab) 40 mg QAM PO 08/31/17 09:00 09/30/17 08:59 Future Hold Oxycodone HCl (Roxicodone Immediate Rel Tab) 1 TABLET FOR PAIN RATING... Q4H PRN PO 08/30/17 09:45 09/13/17 09:44 08/31/17 05:59 10 MG Oxycodone HCl (Oxycontin Tab) 10 mg Q12 PO 08/30/17 21:00 09/13/17 20:59 08/31/17 09:50 10 MG Acetaminophen (Tylenol Tab) 1,000 mg Q8H PO 08/30/17 14:00 09/29/17 13:59 08/31/17 05:44 1,000 MG Magnesium Hydroxide (Milk Of Magnesia Susp) 30 ml Q6H PRN PO 08/30/17 09:45 09/29/17 09:44 Bisacodyl (Dulcolax Supp) 10 mg DAILY PRN KS 08/30/17 09:45 09/29/17 09:44 Sodium Biphosphate/ Sodium Phosphate (Fleet Enema) 132 ml DAILY PRN [place] 08/30/17 09:45 09/29/17 09:44 Docusate Sodium (coLACE CAP) 100 mg BID PO 08/30/17 21:00 09/29/17 20:59 08/31/17 09:39 100 MG Diphenhydramine HCl (Benadryl Cap) 25 mg Q8H PRN PO 08/30/17 09:45 09/29/17 09:44 Al Hydrox/Mg Hydrox/Simethicone (Maalox Max Susp) 15 ml Q4H PRN PO 08/30/17 09:45 09/29/17 09:44 Zolpidem Tartrate (Ambien Tab) 5 mg HSZ PRN PO 08/30/17 09:45 09/29/17 09:44 Multivitamins (Multivitamin Tab) 1 tab QAM PO 08/31/17 09:00 09/30/17 08:59 08/31/17 09:39 1 TAB Ondansetron HCl (Zofran Inj) 4 mg Q6H PRN IV 08/30/17 09:45 09/29/17 09:44 Pantoprazole Sodium (Protonix Tab) 40 mg QAM PO 08/31/17 09:00 09/30/17 08:59 08/31/17 09:39 40 MG Rivaroxaban (Xarelto Tab) 10 mg Q24H PO 08/31/17 09:00 09/12/17 08:59 08/31/17 09:38 10 MG Hydromorphone HCl (Dilaudid Inj) 0.5 mg Q3H PRN IV 08/30/17 09:45 09/13/17 09:44 08/31/17 09:26 0.5 MG Insulin Aspart (novoLOG ASPART) SLIDING SCALE G... ACHS SC 08/30/17 11:00 09/29/17 10:59 08/31/17 09:38 4 UNITS Hydralazine HCl (HydrALAZINE INJ) 10 mg Q6H PRN IV. 08/30/17 13:45 09/29/17 13:44 Glucose (Glucose 40% Gel) 15-30 GRAMS 15 GRAMS... UD PRN PO 08/30/17 13:45 09/29/17 13:44 Glucose (Glucose Chew Tab) 4-8 Tablets 4 Tabl... UD PRN PO 08/30/17 13:45 09/29/17 13:44 Dextrose (Dextrose 50% 50ML Syringe) 25-50ML OF 50% DW IV FOR... UD PRN IV 08/30/17 13:45 09/29/17 13:44 Glucagon (Glucagon Inj) 1 mg UD PRN SQ 08/30/17 13:45 09/29/17 13:44 Telmisartan (Micardis Tab) 40 mg QAM PO 09/01/17 09:00 10/01/17 08:59 UNV Telmisartan (Micardis Tab) 40 mg 0949 ONCE PO 08/31/17 09:49 08/31/17 09:50 UNV Objective Vital Signs Date Time Temp Pulse Resp B/P (MAP) Pulse Ox O2 Delivery O2 Flow Rate FiO2 08/31/17 09:38 73 96/60 (72) 08/31/17 07:50 Room Air 08/31/17 07:41 36.5 65 16 135/72 (93) 93 Room Air 08/31/17 03:00 36.6 67 16 131/80 (97) 93 Nasal Cannula 2.0 08/30/17 23:52 36.5 69 16 149/84 (105) 90 Room Air 08/30/17 23:15 Room Air 08/30/17 20:00 36.4 58 20 118/74 (89) 96 Room Air 08/30/17 15:30 Room Air 08/30/17 15:05 36.4 55 16 116/74 (88) 97 2.0 08/30/17 13:40 58 16 98/65 (76) 96 Nasal Cannula 2.0 08/30/17 12:25 36.3 60 19 117/69 (85) 94 Nasal Cannula 2.0 08/30/17 11:28 36.3 60 16 127/73 (91) 98 Mask 2.0 08/30/17 10:54 36.4 60 16 132/78 (96) 96 Mask 2.0 08/30/17 10:33 92 Oxymask 2.0 08/30/17 10:33 36.4 62 16 131/81 (98) 92 Oxymask 2.0 08/30/17 10:33 Oxymask 2.0 08/30/17 10:20 36.8 62 14 110/77 99 Oxymask 3 08/30/17 10:10 66 14 123/73 99 Oxymask 3 08/30/17 10:00 62 14 126/76 99 Mask 10 08/30/17 09:53 66 14 129/89 99 Mask 10 Physical Exam General Appearance: no apparent distress, + obese Eyes: normal inspection, EOMI, sclerae normal Neck: supple, no adenopathy, no JVD, trachea midline Respiratory/Chest: chest non-tender, lungs clear, normal breath sounds, no respiratory distress, no accessory muscle use Cardiovascular: regular rate, rhythm, no edema, no gallop, no JVD, no murmur Abdomen: normal bowel sounds, non tender, soft, no organomegaly Extremities: no pedal edema, no calf tenderness, pelvis stable, + pertinent finding (left knee swollen, tender, decreased ROM) 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, no motor/sensory deficits, alert, normal mood/affect, oriented x 3 Skin: normal color, warm/dry, no rash Lymphatic: no adenopathy Laboratory Results Last 24 Hours Test 08/30/17 09:57 08/30/17 11:46 08/30/17 13:55 08/30/17 17:09 Bedside Glucose 117 mg/dl 117 mg/dl 123 mg/dl White Blood Count 7.40 K/uL Red Blood Count 4.43 M/uL Hemoglobin 13.9 g/dL Hematocrit 40.2 % Mean Corpuscular Volume 90.7 fL Mean Corpuscular Hemoglobin 31.4 pg Mean Corpuscular Hemoglobin Concent 34.6 g/dl RDW Standard Deviation 41.7 fL RDW Coefficient of Variation 12.7 % Platelet Count 193 K/uL Mean Platelet Volume 9.4 fL Sodium Level 141 mmol/L Potassium Level 3.8 mmol/L Chloride Level 104 mmol/L Carbon Dioxide Level 32 mmol/L Anion Gap 5.0 mmol/L Blood Urea Nitrogen 12 mg/dl Creatinine 0.84 mg/dl Est Creatinine Clear Calc Drug Dose 158.8 ml/min Estimated GFR () 114.2 Estimated GFR (Non- 98.6 BUN/Creatinine Ratio 14.3 Random Glucose 153 mg/dl Calcium Level 8.5 mg/dl Chemistry Specimen Hemolysis Test 08/30/17 21:03 08/31/17 06:17 08/31/17 07:42 08/31/17 08:22 Bedside Glucose 143 mg/dl 103 mg/dl White Blood Count 9.07 K/uL Red Blood Count 4.24 M/uL Hemoglobin 13.5 g/dL Hematocrit 38.6 % Mean Corpuscular Volume 91.0 fL Mean Corpuscular Hemoglobin 31.8 pg Mean Corpuscular Hemoglobin Concent 35.0 g/dl RDW Standard Deviation 42.4 fL RDW Coefficient of Variation 12.7 % Platelet Count 204 K/uL Mean Platelet Volume 9.7 fL Sodium Level 140 mmol/L Potassium Level mmol/L 3.9 mmol/L Chloride Level 105 mmol/L Carbon Dioxide Level 30 mmol/L Anion Gap 5.0 mmol/L Blood Urea Nitrogen 15 mg/dl Creatinine 0.82 mg/dl Est Creatinine Clear Calc Drug Dose 162.6 ml/min Estimated GFR () 115.4 Estimated GFR (Non- 99.6 BUN/Creatinine Ratio 17.8 Random Glucose 107 mg/dl Calcium Level 7.7 mg/dl Assessment and Plan 57 y/o male with a history of HTN, HLD, DM II, and anxiety who presents s/p L TKA with Dr. Rdz on 08/30 for medical management. S/p L TKA, POD #1 -Pain management, DVT prophylaxis, and PT/OT as per primary team - vitals and labs stable today HTN--stable -resume telmisartan with normal Cr, stop IV fluids -Continue Norvasc 10 mg PO qd and Toprol XL 100 mg PO qd -Cover with hydralazine 10 mg IV q6h prn SBP >180 - should resume all prior anti-hypertensives on discharge DM II--last HgbA1c checked 07/28/17 was 7.1 -Hold metformin while inpatient but resume on d/c -Insulin sliding scale, diabetic diet -Check BSGs q ac and qhs Anxiety -Continue Zoloft 100 mg PO qd Code Status -Level I, FULL RESUSCITATION STATUS will sign off, stable from medical perspective, page [phone] with any new issues
[2017-08-31] MEDS ORDERED: TELMISARTAN 40 MG TAB PO ONE (10:00)
[2017-08-31] MEDS: AMLODIPINE BESYLATE 5 MG TAB PO SCH (11:17)
[2017-09-01 00:02] VITALS: BP 159/89
[2017-09-01] MEDS: HYDROmorphone INJ 0.5 MG/0.5 ML SYR IV PRN (01:21)
[2017-09-01] MEDS: OXYCODONE HCL IR 5 MG TAB (IMMEDIATE RELEASE) PO PRN ×3 (03:43→11:25)
[2017-09-01] MEDS: ACETAMINOPHEN 500 MG TAB PO SCH (05:54)
[2017-09-01 06:34] VITALS: BP 160/92; PULSE 95; TEMP 36.6; O2SAT 93
[2017-09-01 07:34] LABS: HEMATOCRIT 38.2 % (42-52); MEAN CELL VOLUME 90.1 fL (80-100); MEAN CORPUSCULAR HEMOGLOBIN 31.8 pg (25-34); MEAN CORPUSCULAR HGB CONC 35.3 g/dl (32-36); MEAN PLATELET VOLUME 9.5 fL (7.4-10.4); PLATELET COUNT 189 K/uL (130-400); RED BLOOD COUNT 4.24 M/uL (4.7-6.1); WHITE BLOOD COUNT 10.77 K/uL (4.8-10.8)
[2017-09-01] MEDS: OXYCODONE HCL 10 MG TABCR (OXYCONTIN) PO SCH (07:39)
[2017-09-01] MEDS: DOCUSATE SODIUM 100 MG CAP PO SCH (07:39)
[2017-09-01] MEDS: AMLODIPINE BESYLATE 5 MG TAB PO SCH (07:40)
[2017-09-01] MEDS: METOPROLOL SUCC 50MG EXT REL TAB PO SCH (07:40)
[2017-09-01] MEDS: PANTOprazole SOD 40 MG TAB PO SCH (07:40)
[2017-09-01] MEDS: MULTIVITAMIN TAB PO SCH (07:40)
[2017-09-01] MEDS: SERTRALINE HCL 100 MG TAB PO SCH (07:41)
[2017-09-01] MEDS: POTASSIUM CHLORIDE 10 MEQ TABCR PO SCH (07:41)
[2017-09-01] MEDS: RIVAROXABAN 10 MG TAB PO SCH (07:42)
--- NOTE | 2017-09-01 07:52 | Orthopedic Progress Note ---
Orthopedic Progress Note Date of Service Sep 01, 2017. Subjective Post OP Day: 2 Reports: feeling well, pain controlled w PO medications, Denies: complaints, chest pain, SOB, nausea / vomiting, light headedness, calf pain Additional Notes: Only issue is pain, likely secondary to nerve block wearing off. Objective calves soft nontender, N/V intact, capillary refill less than 2 sec., dressing C /D/I, A&O x3, toes mobile silverlon in tact. Date Time Temp Pulse Resp B/P (MAP) Pulse Ox O2 Delivery O2 Flow Rate FiO2 09/01/17 06:34 36.6 95 16 160/92 (114) 93 Room Air 09/01/17 00:02 159/89 (112) 08/31/17 23:21 37.0 100 18 180/106 (130) 91 Room Air 08/31/17 20:00 Room Air 08/31/17 15:00 37.0 78 20 138/74 (95) 91 Room Air 08/31/17 11:38 36.8 77 18 132/66 (88) 92 Room Air 08/31/17 11:15 156/75 (102) 08/31/17 09:38 73 96/60 (72) Laboratory Results 24 Hours: Test 09/01/17 07:13 Hematocrit 38.2 % Hemoglobin 13.5 g/dL Assessment & Plan Assessment: POD #2, Left TKA Plan: PT/ OT DVT proph- Xarelto D/C planning- Home w OPPT today As per medicine Inhouse Planning Pain Management: Oxycontin, Ultram, Dilaudid, PO Tylenol, Oxy IR DVT Prophylaxis: TEDs, SCDs, Xarelto Discharge Planning Discharge Planning: home with oppt Pain Management: Oxycontin, PO Tylenol, Oxy IR DVT Prophylaxis: TEDs, Xarelto Therapy: Physical Therapy, Occupational Therapy
[2017-09-01] MEDS ORDERED: XRL10 PO (07:57)
[2017-09-01] MEDS: INSULIN ASPART 100 UNITS/ML 3 ML PEN SC SCH (07:57)
[2017-09-01] MEDS ORDERED: RXC5 PO (07:57)
[2017-09-01] MEDS ORDERED: ACET-24 PO (07:57)
[2017-09-01] MEDS ORDERED: ONDA8TAB6 PO (07:57)
[2017-09-01] MEDS ORDERED: OXYSR10 PO (07:57)
--- NOTE | 2017-09-01 07:58 | Discharge Instructions ---
Discharge Instructions Date of Service Sep 01, 2017. Admission Reason for Admission: Left Knee Degenerative Joint Disease Discharge Discharge Diagnosis / Problem: Left TKA Discharge Goals Goal(s): Improve function Activity Recommendations Activity Limitations: as noted below . Instructions / Follow-Up Instructions / Follow-Up ACTIVITY RECOMMENDATIONS: SELF CARE INSTRUCTIONS AFTER TOTAL KNEE REPLACEMENT A. You may need to continue a physical therapy program after discharge from the hospital. There are several options available to you. Your doctor will assist you in selecting the best one for you. 1. An out-patient facility 2 to 3 times a week for therapy or home therapy. 2. Continue working on all exercises taught to you in the hospital. Your goals should be to increase bending of your knee to 90 degrees and beyond and to fully straighten your knee. B. You may progress at your own pace from walking with a walker or crutches to a cane; then to no assistive devices. C. Make walking a part of your daily routine. Be up as much as comfortable with rest periods throughout the day. Rest with leg elevation is very important. Use the ice wrap frequently for the first 3-4 weeks. D. There are no restrictions on activities. You may ride in a car, shop, participate in axle and frame mechanic and all social activities. E. Wear the long elastic stockings (REYNA hose) 20 hours a day for 2 weeks after surgery. They can be removed several times a day for laundering and for a bath. F. You may shower, no tub baths until cleared by your doctor. SPECIAL CARE INSTRUCTIONS: VERY IMPORTANT TO READ AND REVIEW A. There are a few signs you need to watch for after you are home. Call [facility] if you notice any of the followin. Increased severe knee pain. Some pain is expected especially when you exercise. 2. Increased swelling in your leg or knee; pain or swelling of the calf muscle in either lower leg. 3. Any fluid drainage from the incision. 4. Shortness of breath or chest pain. B. Please call [facility] at if you have any concerns or questions about your operation or recovery. The doctor or his nurse will return your call promptly. C. You must take antibiotics before dental work, bladder, bowel or other surgery. Your doctor will provide you with a permanent care to carry describing this precaution. IMPORTANT: * REMEMBER TO TAKE ASPIRIN, 81 MG, TWICE DAILY FOR 4 WEEKS UNLESS OTHERWISE DIRECTED. THIS IS YOUR BLOOD THINNER. * HIGH RISK PATIENTS MAY BE PRESCRIBED A STRONGER BLOOD THINNER. THIS WILL BE PROVIDED AT DISCHARGE. * CALL IF INCREASED PAIN, REDNESS, DRAINAGE OR FEVER GREATER THAT 101. * WEAR REYNA HOSE 20 HOURS PER DAY FOR 2 WEEKS. * YOU MAY HAVE A LARGE BAND-AID LIKE DRESSING (SILVERON). THIS WILL REMAIN ON YOUR INCISION FOR 7 DAYS, THEN CAN BE REMOVED. IF INCISION IS LEAKING THROUGH DRESSING, CALL THE OFFICE . FOLLOW UP VISIT: If appointment is not already scheduled: Please call [facility] to make a follow-up appointment for 2 weeks after your surgery at . Current Hospital Diet Patient's current hospital diet: Diabetes Type 2 Diet Discharge Diet Recommended Diet: Diabetes Type 2 Diet Procedures Procedures Performed: Left Total Knee Arthroplasty Pending Studies Studies pending at discharge: no Laboratory Results Hemoglobin A1c Test 07/28/17 15:10 Range/Units Estimated Average Glucose 157 mg/dl Hemoglobin A1c 7.1 H 4.5-5.6 % Medical Emergencies . Who to Call and When: Medical Emergencies: If at any time you feel your situation is an emergency, please call 911 immediately. . Non-Emergent Contact Non-Emergency issues call your: Primary Care Provider . "Provider Documentation" section prepared by Pablito Davis. . VTE Core Measure Inpt VTE Proph given/why not?: Other Anticoagulation (xarelto), T.EBenigno Stockings, SCD's [place] Drug Monitoring Program Search Results: patient reviewed within database, no issues identified
[2017-09-01 08:02] LABS: BUN/CREATININE RATIO 13.3 (10-20); CALCIUM 8.5 mg/dl (8.5-10.1); CREATININE 0.85 mg/dl (0.60-1.40); POTASSIUM 3.7 mmol/L (3.5-5.1)
[2017-09-01] MEDS ORDERED: TELMISARTAN 40 MG TAB PO SCH (09:00)
[2017-09-01 09:46] VITALS: BP 160/92; PULSE 95; TEMP 36.6; O2SAT 93
--- NOTE | 2017-09-14 20:33 | DISCHARGE SUMMARY ---
HISTORY OF PRESENT ILLNESS: This is a 57-year-old male patient of Dr. Rdz'doreen complaining of chronic left knee pain, longstanding, now progressively getting worse. The patient has failed conservative treatment and elected to proceed with a left total knee arthroplasty. PAST MEDICAL HISTORY: Hypertension. POSTOPERATIVE COURSE: The patient underwent a left total knee replacement on 08/30/2017; he was followed closely with medical consultation, DVT prophylaxis in the form of Xarelto, physical therapy and pain control. The patient did very well postoperatively and was discharged on postoperative day #2. PHYSICAL EXAMINATION: On discharge, left knee Silverlon dressing was clean, dry and intact. There was no redness or drainage. He had no calf tenderness. Negative Homans sign. Neurologically and neurovascularly, he is intact in his left lower extremity. DIAGNOSIS: Status post left knee total arthroplasty with a history of hypertension. PLAN: The patient was discharged home on his preadmission medications with outpatient physical therapy. We added pain medications and will continue Xarelto for a total of 12-14 days postoperatively for DVT prophylaxis. He will followup with an outpatient as scheduled.
== END 2017-09-01 11:30 | disposition home or self-care (01) | DRG 470 ==
LOC: C.ACU 05:13 → C.3E 07:14 → ENRESERV 10:03
PROVIDERS: ADMIT Orthopaedic Surgery Sports Medicine; ATTEND Orthopaedic Surgery Sports Medicine
PROC: 0SRD0J9 Replacement of Left Knee Joint with Synthetic Substitute, Cemented, Open Approach (ICD-10-PCS; principal; 2017-08-30 07:30)
DX: M17.12 Unilateral primary osteoarthritis, left knee (principal); Z68.42 Body mass index [BMI] 45.0-49.9, adult; I10 Essential (primary) hypertension; E66.9 Obesity, unspecified; E11.9 Type 2 diabetes mellitus without complications; F41.9 Anxiety disorder, unspecified; Z80.1 Family history of malignant neoplasm of trachea, bronchus and lung; Z82.49 Family history of ischemic heart disease and other diseases of the circulatory system

== ENCOUNTER → 2018-01-25 | Outpatient (CLI) | payer BC ==
[~2018-01-25] MED LIST changes: +ACET-24 PO; +METO100T44 PO; -METO1TAB69 PO; +ONDA8TAB6 PO; +OXYSR10 PO; +RXC5 PO; +XRL10 PO
[2018-01-25 17:40] LABS: BASO % 0.5 %; BASO ABS # 0.04 K/uL (0-0.2); EOS % 2.8 %; EOS ABS # 0.24 K/uL (0-0.5); HEMATOCRIT 43.6 % (42-52); HEMOGLOBIN 15.7 g/dL (14.0-18.0); IG# 0.02 K/uL (0.00-0.02); LYMPH % 19.8 %; LYMPH ABS # 1.69 K/uL (1.2-3.4); MEAN CELL VOLUME 87.2 fL (80-100); MEAN CORPUSCULAR HEMOGLOBIN 31.4 pg (25-34); MEAN PLATELET VOLUME 9.7 fL (7.4-10.4); MONO % 10.9 %; MONO ABS # 0.93 K/uL (0.11-0.59); NEUT % 65.8 %; NEUT ABS # 5.62 K/uL (1.4-6.5); PLATELET COUNT 254 K/uL (130-400); RED CELL DISTRIBUTION WIDTH CV 13.3 % (11.5-14.5); RED CELL DISTRIBUTION WIDTH SD 42.2 fL (36.4-46.3); WHITE BLOOD COUNT 8.54 K/uL (4.8-10.8)
[2018-01-25 18:05] LABS: ALBUMIN 3.2 gm/dl (3.4-5.0); ALT/SGPT 23 U/L (12-78); AST/SGOT 25 U/L (15-37); BLOOD UREA NITROGEN 16 mg/dl (7-18); CARBON DIOXIDE 33 mmol/L (21-32); CHOLESTEROL 111 mg/dl (0-200); CREATININE 0.97 mg/dl (0.60-1.40); GLUCOSE 146 mg/dl (70-99); POTASSIUM 3.4 mmol/L (3.5-5.1); SODIUM 138 mmol/L (136-145)
[2018-01-25 18:16] LABS: ALKALINE PHOSPHATASE 102 U/L (45-117); LDL CHOLESTEROL CALCULATED 56 mg/dl; TOTAL PROTEIN 8.1 gm/dl (6.4-8.2)
[2018-01-26 06:57] LABS: HEMOGLOBIN A1C 6.6 % (4.5-5.6)
== END | disposition home or self-care (01) ==
LOC: C.LABMFLN 16:05
PROVIDERS: ATTEND Physician Assistant
DX: I10 Essential (primary) hypertension (principal); E78.5 Hyperlipidemia, unspecified; E11.9 Type 2 diabetes mellitus without complications; E87.6 Hypokalemia

== ENCOUNTER 2024-09-24 05:06 | Observation (INO) ==
--- NOTE | 2024-04-23 12:51 | PAT Medication Instructions ---
Medication Instructions Date of Service April 23, 2024 Home Medications Medication Instructions Recorded blood sugar diagnostic (Blood #100 ea 01/11/22 Glucose Test strips) blood-glucose meter #1 ea 01/11/22 lancets 30 gauge #100 ea 01/11/22 rivaroxaban 20 mg tablet (Xarelto) 20 mg PO QPM #90 tabs 05/23/22 metformin 500 mg tablet,extended 1,000 mg (2 x 500 mg) PO BID #120 10/13/22 release 24 hr tabs sertraline 100 mg tablet 100 mg PO QAM #90 tabs 06/16/23 potassium chloride 10 mEq 10 meq PO QAM #90 tabs 12/23/23 tablet,extended release metoprolol succinate 100 mg 100 mg PO QAM #90 tabs 01/19/24 tablet,extended release 24 hr gabapentin 600 mg tablet 600 mg PO TID #90 tabs 02/05/24 oxycodone-acetaminophen 5 mg-325 1 tab PO Q8H PRN pain #90 tabs 02/19/24 mg tablet (Percocet) vitamin B complex (B Complex-Vitamin B12 tablet) 1 tab PO QAM rivaroxaban 20 mg tablet (Xarelto) 20 mg PO QPM metformin 500 mg tablet,extended release 24 hr 1,000 mg (2 x 500 mg) PO BID spironolactone 25 mg tablet 25 mg PO QAM sertraline 100 mg tablet 100 mg PO QAM ibuprofen 600 mg tablet 600 mg PO Q8H PRN Pain naloxone 4 mg/actuation nasal spray See Rx Instructions potassium chloride 10 mEq tablet,extended release 10 meq PO QAM metoprolol succinate 100 mg tablet,extended release 24 hr 100 mg PO QAM gabapentin 600 mg tablet 600 mg PO TID oxycodone-acetaminophen 5 mg-325 mg tablet (Percocet) 1 tab PO Q8H PRN pain Continue as directed naloxone 4 mg/actuation nasal spray See Rx Instructions (if needed) ASK your surgeon for instructions ibuprofen 600 mg tablet 600 mg PO Q8H PRN Pain ASK your prescriber and surgeon rivaroxaban 20 mg tablet (Xarelto) 20 mg PO QPM (in order to get spinal anesthesia DOS- must be off Xarelto/rivaroxaban for at least 72 hours) DO NOT take the morning of surgery vitamin B complex (B Complex-Vitamin B12 tablet) 1 tab PO QAM metformin 500 mg tablet,extended release 24 hr 1,000 mg (2 x 500 mg) PO BID spironolactone 25 mg tablet 25 mg PO QAM potassium chloride 10 mEq tablet,extended release 10 meq PO QAM Take morning of surgery With a small sip of water, OTHERWISE NOTHING TO EAT OR DRINK AFTER MIDNIGHT: sertraline 100 mg tablet 100 mg PO QAM metoprolol succinate 100 mg tablet,extended release 24 hr 100 mg PO QAM gabapentin 600 mg tablet 600 mg PO TID oxycodone-acetaminophen 5 mg-325 mg tablet (Percocet) 1 tab PO Q8H PRN pain Take evening before surgery metformin 500 mg tablet,extended release 24 hr 1,000 mg (2 x 500 mg) PO BID gabapentin 600 mg tablet 600 mg PO TID oxycodone-acetaminophen 5 mg-325 mg tablet (Percocet) 1 tab PO Q8H PRN pain (if needed) Other Notes If you have any questions please call us at [phone] or [phone] or [phone] or [phone]
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
[2024-09-24] MEDS ORDERED: ROPIVACAINE 0.5% 5 MG/ML 30 ML VIAL ONE (06:20)
[2024-09-24] MEDS: ACETAMINOPHEN 500 MG TAB PO SCH ×2 (06:26→13:24)
[2024-09-24] MEDS: CeleBREX 200 MG CAP PO SCH (06:27)
[2024-09-24] MEDS: METOCLOPRAMIDE HCL 10 MG TABLET PO SCH (06:27)
[2024-09-24] MEDS: FAMOTIDINE 20 MG TAB PO SCH (06:28)
[2024-09-24] MEDS ORDERED: ATROPINE SULFATE 0.1 MG/ML 10ML SYR IV PRN (06:39)
[2024-09-24] MEDS ORDERED: ONDANSETRON INJ 2 MG/ML 2 ML VIAL IV PRN ×2 (06:39→10:45)
[2024-09-24] MEDS ORDERED: ePHEDrine sulfate 50 MG/ML AMP IV PRN (06:39)
--- NOTE | 2024-09-24 06:39 | History & Physical Bridge Note ---
Date of Service September 24, 2024 History & Physical Bridge Note I have examined the patient, reviewed the History & Physical and in the interval since the performance of the History & Physical I have noted the following changes of clinical significance: no changes noted
[2024-09-24] MEDS ORDERED: MIDAZOLAM HCL 1 MG/ML 2ML VIAL ONE ×3 (06:40→06:41)
[2024-09-24] MEDS ORDERED: MoRPHine SULFATE PF 1 MG/ML 10 ML AMP/VIAL ONE (06:41)
[2024-09-24] MEDS: TRANEXAMIC ACID 1,000 MG **IV Pre-op IV SCH (06:45)
[2024-09-24] MEDS ORDERED: ROCURONIUM BROMIDE 10 MG/ML 5 ML VIAL IV ONE (06:53)
[2024-09-24] MEDS ORDERED: fentaNYL citrate PF 100 MCG/2 ML VIAL ONE (06:53)
[2024-09-24] MEDS: ceFAZolin 3000MG 3,000 MG/72.5 ML BAG IV SCH (06:53)
[2024-09-24] MEDS ORDERED: KETAMINE HCL 10MG/ML SYR ONE (07:10)
[2024-09-24] MEDS ORDERED: ONDANSETRON INJ 2 MG/ML 2 ML VIAL ONE (07:15)
[2024-09-24] MEDS ORDERED: HYDROmorphone INJ 2 MG/ML SYR/VIAL ONE (07:32)
[2024-09-24] MEDS: LR 500ML BOLUS, THEN 15ML/HR IV SCH (07:32)
[2024-09-24] MEDS ORDERED: DexMEDEtomidine HCL IV 100 MCG/ML VIAL IV ONE (07:40)
[2024-09-24] MEDS ORDERED: LABETALOL HCL IV 5 MG/ML 20ML IV ONE (07:46)
[2024-09-24] MEDS: BUPIVACAINE/EPINEPHRINE 0.5% MPF 1:200,000 30 ML VIAL ONE (07:52)
[2024-09-24] MEDS ORDERED: ALBUMIN HUMAN 5% 12.5 GM/250 ML VIAL IV ONE (07:57)
[2024-09-24] MEDS ORDERED: TRANEXAMIC ACID / 0.7% NACL 1000MG/100ML BAG IV ONE (08:03)
[2024-09-24] MEDS ORDERED: SUGAMMADEX SODIUM 200 MG/2 ML VIAL IV ONE ×2 (08:11→08:44)
--- NOTE | 2024-09-24 08:49 | Operative Report ---
PG Post Operative Report Pre & Post Diagnosis Operation Date: 09/24/24 07:00 Pre-Op Diagnosis: Right Hip Osteoarthritis Post-Op Diagnosis: Right Hip Osteoarthritis I identified the patient and participated in the time-out.: Yes Procedure Operation Date: 09/24/24 07:00 Actual Procedures p Right Total Hip Arthroplasty, Uncemented(Right) - David Rosa MD Surgeon David Rosa MD Designer/Writer Merlin Early PA-C Estimated Blood Loss 300 Findings Consistent with Post-Op Diagnosis Operative findings revealed advanced right hip DJD. He had grade 4 [id number]-di-rinb disease the femoral head and acetabulum. Moderate-sized joint effusion. Fairly large soft tissue envelope. Specimens Right femoral head sent for pathology. Anesthesia Type Spinal MAC Complications none Disposition Accompanied Patient To Recovery: No Indications The patient is a 64-year-old gentleman with multiple medical comorbidities who had both of his knees replaced in the past. Over the past year or so he has developed increased pain and discomfort in his right leg and having difficulty ambulating. X-rays show advanced right hip arthritis. He failed conservative measures. He elected proceed with total hip arthroplasty. Description of Procedure Operative implants consist of: 1 Biomet G7 size 56 mm acetabular shell. 2. 6.5 cancellous acetabular screws 1 at 35 mm length 1 at 30 mm length. 3. Zavalla hole wedding decorator. 4. Highly cross-linked polyethylene liner with a 56 mm outer diameter 36 mm inner diameter. 5. DePuy Corail size 13 KLA femoral stem. 6. +5/36 mm ceramic articular ball. The patient was taken the op room, identified, placed on the operating table in the supine position. All conductors were appropriately padded. IV antibiotics tried by anesthesia team. A spinal anesthetic had been attempted in the holding area but unsuccessful. A general anesthetic was implemented. The patient was then placed in the left lateral decubitus position. An axillary roll was placed. Distal Birkett position was used for positioning. The right hip and leg were then prepped and draped in usual sterile fashion. A posterolateral approach to the right hip was then performed through a curvilinear incision centered over the greater trochanter. Sharp dissection was got through subcutaneous tissue dental of the IT band gluteal fascia. The IT band gluteal fascia was sized longitudinally in line with skin incision. The underlying greater bursa was excised. The piriformis and external rotators along with the posterior hip joint capsule were then released from the posterior aspect the hip as a single layer. Great care was taken throughout the procedure protect the sciatic nerve at all times. The hip was internally rotated and dislocated. A femoral neck osteotomy cut was made with Final Cut about 12 mm above the lesser trochanter. Femoral head was removed and sent for pathology. The femur was retracted anteriorly. Attention drawn the acetabulum. The acetabulum labrum was excised. The pulmonary fat was excised. Sequential reaming the acetabular was then performed beginning with a size 47 and progressing up to a 55. I reamed a little bit with a 56 reamer and then placed a 56 mm Biomet G7 acetabular shell in about 40 degrees lateral opening and 20 degrees of anteversion. It was fixed with two 6.5 screws. A trial liner was placed. Attention drawn the femur. The proximal femur was entered with cookie-cutter followed by canal finder. I then broached beginning with a size 8 and progressed up to 13. We got excellent fitted to 13. I then trialed the hip and the +5 articular ball seemed recreate appropriate soft tissue tension and leg lengths equal. His hip was fully stable full extension and external rotation and flexion to 90 degrees internal rotation over [address] We elect to place these implants. Nupathe all trial implants were removed. An apex hole wedding decorator was placed. Highly cross-linked polyethylene liner was placed. A size 13 KLA femoral stem was impacted in position. A +5/36 mm ceramic articular ball was placed. Hip was once again located and found to be stable. Attention drawn toward closing. The wound was irrigated with gross amounts of pulsatile lavage solution. We did inject locally with 60 cc of half percent Marcaine with epinephrine. The posterior capsule and external rotators then repaired through drill holes in the posterior trochanter with #2 Tycron suture. The IT band gluteal fascia then closed in a 1 PDS suture in a running fashion. Subcutaneous tissue was then closed with 2 layers the deep layer #2 Vicryl suture in the more superficial layer with 2-0 Dexon suture in a buried interrupted fashion. Skin was closed skin elle. Leg was then cleaned and dried a sterile dressing with Xeroform, 4 fours, ABD pad and foam tape was applied. The patient then transferred to the recovery room in stable condition. Patient tolerated procedure well and there were no complications. Merlin Pozniak, my physician physical laboratory assistant, was present for the entire procedure. His assistance was essential and required for appropriate patient positioning, prepping and draping, surgical exposure, performing the technical details of the operation, placement the implants, closure of the wound, and placement of the sterile bandage. I attest to the content of the Intraoperative Record and any orders documented therein. Any exceptions are noted below.
[2024-09-24] MEDS: fentaNYL citrate PF 100 MCG/2 ML VIAL IV PRN (09:05)
[2024-09-24] MEDS: HYDROmorphone INJ 1 MG/ML SYRINGE IV PRN (09:15)
--- NOTE | 2024-09-24 09:37 | XRay Report ---
XR hip 1V RT w pelvis CLINICAL HISTORY: Postoperative evaluation. COMPARISON: Right hip radiograph September 02, 2024. FINDINGS: Alignment of the total right hip arthroplasty is anatomic. There is no periprosthetic frac ture or unexpected radiopaque foreign body. There are acetabular screws and skin elle. Small metal lic densities projecting over the pelvis are unchanged from earlier exams. IMPRESSION: Expected findings following total right hip arthroplasty. ACT 112: Negative or not required by law. Electronically signed by: Aureliano Doe M.D. 09/24/2024 9:36 AM
--- NOTE | 2024-09-24 10:10 | Anesthesiology Progress Note ---
Date of Service September 24, 2024 Anesthesia Post Procedure Vital Signs Vital Signs: Temp Pulse Pulse Pulse Resp BP BP 09/24/24 10:05 84 14 107/74 09/24/24 09:55 36.4 C L 88 12 102/69 09/24/24 09:45 92 H 10 L 112/66 09/24/24 09:35 98 H 12 98/64 L 09/24/24 09:25 84 12 91/68 L 09/24/24 09:15 98 H 12 119/86 09/24/24 09:08 108 H 17 09/24/24 09:05 87 14 99/66 L 09/24/24 08:55 36 C L 100 H 12 106/78 09/24/24 06:00 36.5 C 67 20 127/75 Pulse Ox O2 Del Method O2 Flow Rate FiO2 09/24/24 10:05 92 Nasal Cannula 3 09/24/24 09:55 92 Nasal Cannula 3 09/24/24 09:45 95 Oxymask 6 09/24/24 09:35 96 Oxymask 10 09/24/24 09:25 96 BiPAP 45 09/24/24 09:15 95 BiPAP 45 09/24/24 09:08 95 45 09/24/24 09:05 95 BiPAP 45 09/24/24 08:55 93 BiPAP 09/24/24 06:00 94 Room Air Pain Intensity Right Leg: Pain Intensity: 8 Right Hip: Pain Intensity: 7 Transfer of Care Handoff Completed per policy Notes Mental Status: alert / awake / arousable and participated in evaluation Patient Amnestic to Procedure: Yes Nausea / Vomiting: adequately controlled Pain: adequately controlled Airway Patency, RR, SpO2: stable & adequate BP & HR: stable & adequate Hydration State: stable & adequate Anesthetic Complications: no major complications apparent and Pt Satisfied with anesthetic care
[2024-09-24] MEDS ORDERED: bisacodyL 10 MG SUPP PR PRN (10:45)
[2024-09-24] MEDS ORDERED: NALOXONE HCL 0.4 MG/1 ML VIAL/CARP IV PRN (10:45)
[2024-09-24] MEDS ORDERED: MAGNESIUM HYDROXIDE SUSP 30 ML UDC PO PRN (10:45)
[2024-09-24] MEDS ORDERED: FUROSEMIDE 40 MG TAB PO PRN (10:45)
[2024-09-24] MEDS ORDERED: PHARMACY GLYCEMIC MGMT CONSULT PRN (10:45)
[2024-09-24] MEDS ORDERED: METOCLOPRAMIDE HCL INJ 5 MG/ML 2 ML VIAL IV PRN (10:45)
[2024-09-24] MEDS ORDERED: HYDROmorphone INJ 0.5 MG/0.5 ML SYR IV PRN (10:45)
[2024-09-24] MEDS ORDERED: TAMSULOSIN HCL 0.4 MG CAP PO PRN (10:45)
[2024-09-24] MEDS ORDERED: ALUMINUM/MAGNESIUM SUSP 30 ML UDC PO PRN (10:45)
[2024-09-24] MEDS: LR 60ML/HR IV SCH (11:13)
[2024-09-24] MEDS ORDERED: DEXTROSE 50% 50 ML SYRINGE IV PRN (11:30)
[2024-09-24] MEDS ORDERED: GLUCOSE 10 TAB/TUBE PO PRN (11:30)
[2024-09-24] MEDS ORDERED: GLUCOSE 40% GEL 15 GM TUBE PO PRN (11:30)
[2024-09-24] MEDS ORDERED: GLUCAGON FOR INJ 1 MG VIAL SQ PRN (11:30)
[2024-09-24] MEDS ORDERED: CARBOHYDRATES FOR HYPOGLYCEMIA PO PRN (11:30)
--- NOTE | 2024-09-24 11:31 | Pharmacy Report ---
Pharmacy Glycemic Short Note 2 - Date of Service September 24, 2024 - Glycemic Short BSG Results (Last 24 hours): 09/24/24 09/24/24 05:52 09:30 POC Glucose 88 119 H OUTPATIENT ANTIDIABETIC REGIMEN: * Metformin 1000 mg PO BIDM HbA1c: 5.5% (09/02/24) ASSESSMENT: * RH is a 64 year old male POD #0 s/p right total hip arthroplasty * No steroids perioperatively, but dexamethasone 10 mg IV x 1 ordered for tomorrow AM * Preop blood sugar of 88 mg/dL, postop blood sugar of 119 mg/dL * Will defer basal insulin at this time and utilize conservative Novolog only PLAN FOR INPATIENT GLYCEMIC CONTROL: * Hold outpatient oral diabetes medications * Basal insulin * Hold * Bolus insulin * NovoLog per scale ACHS or Q6hrs while NPO * Goal Range: Low 120 mg/dL - High 150 mg/dL * Correction Factor: 45 mg/dL/unit * Nutritional / Prandial insulin per carb ratio of 1 unit per 15 grams CHO consumed
[2024-09-24] MEDS: INSULIN ASPART PER UNIT CHARGE SC SCH (13:04)
[2024-09-24] MEDS: KETOROLAC 30 MG/ML VIAL IV SCH (13:18)
[2024-09-24] MEDS: SERTRALINE HCL 100 MG TABLET PO SCH (13:18)
[2024-09-24] MEDS: ceFAZolin 2000MG 2,000 MG/15 ML SYR IV SCH (13:18)
[2024-09-24] MEDS: DOCUSATE SODIUM 100 MG CAP PO SCH (13:18)
[2024-09-24] MEDS: POTASSIUM CHLORIDE 10 MEQ TABCR PO SCH (13:18)
[2024-09-24] MEDS: MULTIVITAMIN TAB PO SCH (13:19)
[2024-09-24] MEDS: VITAMIN B COMPLEX TAB PO SCH (13:19)
[2024-09-24] MEDS: METOPROLOL SUCC 50MG EXT REL TAB PO SCH (13:19)
[2024-09-24] MEDS: TRANEXAMIC ACID / 0.7% NACL 1,000 MG/100 ML BAG IV SCH (13:19)
[2024-09-24] MEDS: SPIRONOLACTONE 25 MG TAB PO SCH (13:19)
[2024-09-24] MEDS: GABAPENTIN 600 MG TAB PO SCH (13:20)
[2024-09-24] MEDS: ASCORBIC ACID 500 MG TAB PO SCH (16:19)
[2024-09-24] MEDS: SENNA 8.6 MG TAB PO SCH (21:00)
[2024-09-24 22:46] VITALS: RESP 18
[2024-09-25 06:25] LABS: Basophils # (auto) 0.04 K/uL (0.00-0.20); Basophils % (auto) 0.4 %; Eosinophils # (auto) 0.16 K/uL (0.00-0.50); Eosinophils % (auto) 1.5 %; Hematocrit (blood only) 40.7 % (42.0-52.0); Hemoglobin 14.4 g/dl (14.0-18.0); Immature Granulocytes # (auto) 0.06 K/uL (0.01-0.20); Immature Granulocytes % (auto) 0.5 %; Lymphocytes # (auto) 1.26 K/uL (1.20-3.40); Lymphocytes % (auto) 11.5 %; Mean Corpuscular Hemoglobin 33.3 pg (25.0-34.0); Mean Corpuscular Hgb Conc 35.4 g/dL (32.0-36.0); Mean Platelet Volume 9.8 fL (9.4-12.4); Monocytes # (auto) 1.26 K/uL (0.11-0.59); Monocytes % (auto) 11.5 %; Neutrophils # (auto) 8.19 K/uL (1.40-6.50); Neutrophils % (auto) 74.6 %; Platelet Count 182 K/uL (130-400); RDW Coefficient of Variation 12.6 % (11.5-14.5); RDW Standard Deviation 43.7 fL (36.4-46.3); Red Blood Count 4.33 M/uL (4.70-6.10); White Blood Count 10.97 K/ul (4.8-10.8)
[2024-09-25 06:31] LABS: BUN Creatinine Ratio 21.6 (10-20); Calcium 8.6 mg/dl (8.6-10.3); Creatinine Clr Calc Pharmacy 81.8 ml/min; Potassium 4.8 mmol/L (3.5-5.1)
[2024-09-25] MEDS: oxyCODONE HCL IR 5 MG TAB (IMMEDIATE RELEASE) PO PRN (08:04)
[2024-09-25] MEDS: dexAMETHasone 10 MG in SYRINGE 0 ML IV SCH (08:05)
[2024-09-25] MEDS: RIVAROXABAN 10 MG TABLET PO SCH (08:06)
--- NOTE | 2024-09-25 12:51 | Orthopedic Progress Note ---
Date of Service September 25, 2024 Assessment & Plan (1) Status post right hip replacement: Plan: 64-year-old gentleman with multiple medical comorbidities now postop day 1 from a right hip replacement. He is doing quite well. Had a slight hypotensive episode earlier today but seems to be better. His pain is controlled. Hips located. He is neurologically intact. Plan: 1. DVT prophylaxis including thigh-high teds, SCDs, Xarelto for 1 month. 2. PT/OT. Weight-bear as tolerated. Right total hip protocol. 3. Pain control doing okay with current pain regimen. 4. Disposition. Plan is to discharge to a rehab or correction facility. Will check in and that now. (2) Cardiomyopathy: (3) Type 2 diabetes mellitus with hyperlipidemia: (4) Morbid obesity: (5) Hypertension: (6) Hyperlipidemia: (7) Atrial fibrillation: Admission and Anticipated Discharge Date Admission Date: September 24, 2024 Subjective 64-year-old gentleman with multiple medical comorbidities now postop day 1 from right hip replacement. He is doing well. Pains been controlled. He did have a little bit of a hypotensive/Ortho static episode earlier today. He says this was minor. No chest pain or shortness of breath. Not feeling dizzy or lightheaded. Pains controlled on current pain regimen. Physical Exam Physical Exam: Physical exam shows a pleasant middle-age male. He is sitting up in bed and looks pretty comfortable. Examination of the right hip and leg reveals leg to be well aligned. Leg lengths are equal. Dressings clean dry and intact. Thigh is soft and supple. He is neurologically intact. Respiratory: normal respiratory effort, lungs clear to auscultation Cardiovascular: RRR, no murmur, no edema Gastrointestinal (Abdomen): normal bowel sounds, soft, nontender, no hepatosplenomegaly Results & Data Vital Signs (Past 12 Hours) Vital Signs Temp Pulse Resp BP Pulse Ox O2 Del Method O2 Flow Rate 09/25/24 10:49 105/69 09/25/24 07:57 36.6 C 94 H 18 108/65 91 Room Air 09/25/24 04:14 71 109/72 95 Nasal Cannula 2 09/25/24 03:05 36.8 C 76 18 99/66 L 96 Nasal Cannula 2 Laboratory Results Hemoglobin is 14.4. Hematocrit is 40.7. Electrolytes are stable.
--- NOTE | 2024-09-25 13:59 | Pharmacy Report ---
Pharmacy Glycemic Short Note 2 - Date of Service September 25, 2024 - Glycemic Short BSG Results (Last 24 hours): 09/24/24 09/24/24 09/25/24 16:48 20:32 05:33 Glucose 118 H POC Glucose 100 H 110 H 09/25/24 09/25/24 07:53 11:46 Glucose POC Glucose 118 H 127 H OUTPATIENT ANTIDIABETIC REGIMEN: * Metformin 1000 mg PO BIDM HbA1c: 5.5% (09/02/24) ASSESSMENT: 09/25/24: * Blood sugars well-controlled postoperatively w/ no insulin * Dexamethasone 10 mg IV x 1 today - will tighten Novolog parameters, but hold off on basal for now * Will likely need to loosen parameters again tomorrow with no ongoing steroids 09/24/24: * RH is a 64 year old male POD #0 s/p right total hip arthroplasty * No steroids perioperatively, but dexamethasone 10 mg IV x 1 ordered for tomorrow AM * Preop blood sugar of 88 mg/dL, postop blood sugar of 119 mg/dL * Will defer basal insulin at this time and utilize conservative Novolog only PLAN FOR INPATIENT GLYCEMIC CONTROL: * Hold outpatient oral diabetes medications * Basal insulin * Hold * Bolus insulin * NovoLog per scale ACHS or Q6hrs while NPO * Goal Range: Low 110 mg/dL - High 140 mg/dL * Correction Factor: 30 mg/dL/unit * Nutritional / Prandial insulin per carb ratio of 1 unit per 10 grams CHO consumed
--- NOTE | 2024-09-26 06:45 | Orthopedic Progress Note ---
Date of Service September 26, 2024 Assessment & Plan (1) Status post right hip replacement: Plan: 64-year-old gentleman with multiple medical comorbidities now postop day 2 from a right hip replacement doing well. His pain is controlled. Hips located. He is neurologically intact. Plan: 1. DVT prophylaxis including Thiede teds, SCDs, prophylactic Xarelto for 30 days. 2. PT/OT. Weight-bear as tolerated. Right total hip protocol. 3. Pain control doing okay with current pain regimen. 4. Disposition plan to discharge to [facility] facility later this morning. (2) Chewing tobacco use: (3) BPH w urinary obs/LUTS: (4) Cardiomyopathy: (5) Type 2 diabetes mellitus with hyperlipidemia: (6) Morbid obesity: Admission and Anticipated Discharge Date Admission Date: September 24, 2024 Subjective 64-year-old gentleman now postop day 2 from right hip replacement. He is doing pretty well this morning. His pain is controlled. He is getting up and around reasonably well. He is hoping to go to rehab. No chest pain or shortness of breath. Physical Exam Physical Exam: Physical examination was a pleasant middle-age male. He is lying bed looks comfortable this morning watching TV. Examination of the right hip reveals the dressing be clean dry and intact. Thigh is soft and supple. Leg lengths are equal. He is neurologically intact. Results & Data Vital Signs (Past 12 Hours) Vital Signs Temp Pulse Resp BP Pulse Ox O2 Del Method 09/25/24 20:15 36.8 C 98 H 18 113/75 92 Room Air
[2024-09-26] MEDS: PNEUMOCOCCAL VACCINE (PCV20) 20-VAL CONJ-DIP CRM/PF 0.5 ML SYR IM ONE (07:54)
[2024-09-26 08:06] VITALS: BP 114/77; PULSE 69; TEMP 97.7; O2SAT 95
== END 2024-09-26 10:54 | DRG 470 ==
LOC: ASU 05:06 → 3E 08:42 → INTOOBSV 08:42